=== PATIENT | female | born 1990 | race Caucasian/White ===

== ENCOUNTER 2017-02-06 21:17 | Observation (INO) | payer OTHER ==
[~2017-02-06] VITALS: Ht 157.5 cm; Wt 63.5 kg
[2017-02-06 23:07] VITALS: BP 120/61; PULSE 63; RESP 20; TEMP 97.9
== END 2017-02-06 22:25 ==
LOC: SPU 21:17
PROVIDERS: ADMIT Obstetrics & Gynecology; ATTEND Obstetrics & Gynecology
DX: O26.893 Other specified pregnancy related conditions, third trimester (principal); R10.9 Unspecified abdominal pain; Z3A.32 32 weeks gestation of pregnancy
CPT/HCPCS: 81002; G0378

== ENCOUNTER 2021-09-11 16:58 | Emergency (ER) | payer MEDICAID, OTHER ==
[~2021-09-11] VITALS: Ht 160 cm; Wt 69.9 kg
[2021-09-11 17:13] VITALS: BP_SYST 118
[2021-09-11 17:36] LABS: BILIRUBIN,URINE NEGATIVE (NEGATIVE); BLOOD, URINE NEGATIVE (NEGATIVE); COLOR,URINE YELLOW (YELLOW); GLUCOSE,URINE NEGATIVE (NEGATIVE); KETONES,URINE NEGATIVE (NEGATIVE); LEUKOCYTE ESTERASE ,URINE NEGATIVE (NEGATIVE); NITRITE, URINE NEGATIVE (NEGATIVE); PH,URINE 7.5 (5.0-8.0); PROTEIN URINE NEGATIVE (NEGATIVE); UROBILINOGEN,URINE 0.2 (0.2-1.0)
[2021-09-11 17:49] LABS: CLARITY/URINE SLIGHTLY HAZY (CLEAR)
[2021-09-12] MEDS ORDERED: METR500T PO (12:13)
[2021-09-12] MEDS ORDERED: IBUP-1969 PO (12:13)
== END 2021-09-11 19:10 | disposition left against medical advice (07) ==
LOC: SED 16:58
DX: R10.2 Pelvic and perineal pain (principal); Z53.21 Procedure and treatment not carried out due to patient leaving prior to being seen by health care provider
CPT/HCPCS: 81003; 81025; 87491; 87591

== ENCOUNTER 2021-09-12 10:23 | Emergency (ER) | payer MEDICAID ==
[~2021-09-12] VITALS: Ht 162.6 cm; Wt 68.0 kg
[2021-09-12 10:25] VITALS: BP_SYST 144
--- NOTE | 2021-09-12 10:40 | NUR ---
Patient to ER bed 7 by [employer] to gown for evaluation. Side rails up. Report received from [employer].
--- NOTE | 2021-09-12 10:45 | NUR ---
Pt. was dropped off by staff from current sober living facility, pt. 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 Pt. came today with c/o cramping and back pain for 1 week that she rates 7/10 and foul smelling vaginal discharge for 2 days, pt. stated she was treated 3 months ago for trichomoniasis and has not been sexually active for 1 month.
--- NOTE | 2021-09-12 10:49 | NUR ---
ER at bedside examining patient.
--- NOTE | 2021-09-12 11:00 | NUR ---
speculum exam done by Dr. Mccormick and cultures obtained
[2021-09-12] MEDS: cefTRIAXone 1 GM in LIDOCAINE 1%, 20 ML MDV 2.1 ML IM ONE (11:45)
[2021-09-12] MEDS ORDERED: IBUP-1969 PO (12:13)
[2021-09-12] MEDS ORDERED: METR500T PO (12:13)
--- NOTE | 2021-09-12 12:50 | NUR ---
Patient given written and verbal discharge instructions and verbalizes understanding. ER MD discussed with patient the results and treatment provided. Patient in stable condition. ID arm band removed. Rx given. Patient educated on pain management and to follow up with PMD. Pain Scale 0. Opportunity for questions provided and answered. Medication side effect fact sheet provided.
[2021-09-12 13:02] VITALS: BP_SYST 144
== END 2021-09-12 12:50 | disposition home or self-care (01) ==
LOC: SED 10:23
DX: N76.0 Acute vaginitis (principal)
CPT/HCPCS: 81002; 81025; 87210; 87491; 87591; 96372; 99284; J0696; J2001